=== PATIENT | female | born 1980 | race Caucasian/White ===

== ENCOUNTER 2021-06-30 18:17 | Emergency (ER) | payer BC, SELFPAY ==
[~2021-06-30] VITALS: Ht 149.9 cm; Wt 93.0 kg
[~2021-06-30 18:17] MED LIST: PREN1TAB49 PO
[2021-06-30 18:35] VITALS: BP_SYST 130
--- NOTE | 2021-06-30 18:35 | NUR ---
pt. came in with c/o body aches, sore throat, nausea, and chills X 3 days
--- NOTE | 2021-06-30 19:59 | NUR ---
went to tent pt. LWBS by
== END 2021-06-30 19:59 | disposition left against medical advice (07) ==
LOC: SED 18:17
DX: J02.9 Acute pharyngitis, unspecified (principal); M79.18 Myalgia, other site; Z20.822 Contact with and (suspected) exposure to COVID-19; Z53.21 Procedure and treatment not carried out due to patient leaving prior to being seen by health care provider
CPT/HCPCS: 36415

== ENCOUNTER 2022-06-05 06:43 | Emergency (ER) | payer BC ==
[~2022-06-05] VITALS: Ht 149.9 cm; Wt 80.7 kg
[~2022-06-05 06:43] MED LIST changes: +DIF100 PO; +METR45GE5 TP; +NAPR-686 PO; +PHE25 PO
[2022-06-05 07:30] VITALS: BP_SYST 109
--- NOTE | 2022-06-05 07:45 | NUR ---
Patient triaged and placed in waiting room. VSS and patient appears in no acute distress at this time. Accompanied by self, awaiting available bed, and MD notified of need for MSE.
[2022-06-05] MEDS ORDERED: IBUP-1969 PO (07:55)
[2022-06-05] MEDS ORDERED: PSEU30TA36 PO (07:55)
[2022-06-05] MEDS ORDERED: GUAI-723 PO (07:55)
[2022-06-05] MEDS ORDERED: PROM6.256 PO (07:55)
--- NOTE | 2022-06-05 08:00 | NUR ---
Patient to ER bed triage to gown for evaluation. Side rails up.
--- NOTE | 2022-06-05 08:05 | NUR ---
ER at bedside examining patient.
[2022-06-05] MEDS ORDERED: OSEL75CA PO (09:11)
[2022-06-05 09:15] VITALS: BP_SYST 109
--- NOTE | 2022-06-05 09:15 | NUR ---
Patient given written and verbal discharge instructions and verbalizes understanding. ER MD discussed with patient the results and treatment provided. Patient in stable condition. ID arm band removed. Rx of rhonda varela, given. Patient educated on pain management and to follow up with PMD. Pain Scale 3. Opportunity for questions provided and answered. Medication side effect fact sheet provided.
== END 2022-06-05 09:15 | disposition home or self-care (01) ==
LOC: SED 06:43
DX: J10.1 Influenza due to other identified influenza virus with other respiratory manifestations (principal); R50.9 Fever, unspecified; R05.9 Cough, unspecified; R09.81 Nasal congestion; Z79.899 Other long term (current) drug therapy; Z20.822 Contact with and (suspected) exposure to COVID-19
CPT/HCPCS: 36415; 99283